=== PATIENT | female | born 1960 | race American Indian/Alaskan Native ===

== ENCOUNTER 2020-04-15 15:01 | Emergency (ER) | payer SELFPAY ==
[2020-04-15 15:27] VITALS: BP 138/84
--- NOTE | 2020-04-15 15:27 | Emergency Department Report ---
Blank Doc - Documentation Documentation: 59-year-old female that presents with blood in stool. Denies any abdominal pain or n/v. Stated has bright red blood in toilet while having a bowel movement. This initial assessment/diagnostic orders/clinical plan/treatment(s) is/are subject to change based on patients health status, clinical progression and re- assessment by fellow clinical providers in the ED. Further treatment and workup at subsequent clinical providers discretion. Patient/guardian urged not to elope from the ED as their condition may be serious if not clinically assessed and managed. Initial orders include: labs ua
[2020-04-15 15:55] LABS: Basophils # (Auto) 0.1 K/mm3 (0.0-0.1); Basophils % (Auto) 0.8 % (0.0-1.8); Eosinophils # (Auto) 0.1 K/mm3 (0.0-0.4); Eosinophils % (Auto) 1.9 % (0.0-4.3); Hematocrit 43.3 % (30.3-42.9); Hemoglobin 14.3 gm/dl (10.1-14.3); Lymphocytes # (Auto) 2.6 K/mm3 (1.2-5.4); Mean Corpuscular HGB Conc 33 % (30-34); Mean Corpuscular Volume 84 fl (79-97); Monocytes # (Auto) 0.5 K/mm3 (0.0-0.8); Monocytes % (Auto) 5.7 % (0.0-7.3); Platelet Count 258 K/mm3 (140-440); Red Blood Count 5.18 M/mm3 (3.65-5.03); Red Cell Distribution Width 14.1 % (13.2-15.2)
[2020-04-15 16:14] LABS: Alanine Aminotransferase 17 units/L (7-56); Albumin 4.2 g/dL (3.9-5); BUN/Creatinine Ratio 19; Blood Urea Nitrogen 17 mg/dL (7-17); Calcium 9.4 mg/dL (8.4-10.2); Hemolysis Index 6
--- NOTE | 2020-04-15 17:32 | Emergency Department Report ---
HPI - General Chief Complaint: Abdominal Pain Time Seen by Provider: 04/15/20 15:26 - HPI HPI: Room 43 The patient is a 59-year-old female present with a chief complaint of blood in her stool. The patient states 3 days ago she noticed blood in her stool and bright red blood on the tissue after wiping. Patient denies rectal pain at that time. Patient states she did not have another episode of hematochezia until yesterday when she noticed a small drop of blood in the bowl. Patient admits to nausea but denies vomiting. Patient admits to lower abdominal pain for the past 4 days. Patient denies history of fever. The patient states she is never had a colonoscopy ED Past Medical Hx - Past Medical History Previous Medical History?: No - Surgical History Past Surgical History?: No Additional Surgical History: Hysterectomy, myomectomy, bilateral tubal ligation - Family History Family history: no significant - Social History Smoking Status: Never Smoker Substance Use Type: None (Denies illicit drug use) - Medications Home Medications: Home Medications Medication Instructions Recorded Confirmed Last Taken Type Hydrocortisone [Anucort-HC SUPPOS] 25 mg RC BID #10 supp.rect 04/15/20 Unknown Rx metroNIDAZOLE [Flagyl] 500 mg PO Q12HR #14 tab 04/15/20 Unknown Rx ED Review of Systems ROS: Stated complaint: BLOOD IN STOOL/DISCHARGE Other details as noted in HPI Constitutional: denies: fever Eyes: denies: eye pain ENT: denies: throat pain Respiratory: no symptoms reported Cardiovascular: denies: chest pain Endocrine: no symptoms reported Gastrointestinal: abdominal pain, nausea, hematochezia. denies: vomiting Musculoskeletal: denies: back pain Neurological: denies: headache Physical Exam - Physical Exam Vital Signs: Vital Signs 04/15/20 15:26 Temperature 98.5 F Pulse Rate 84 Respiratory 16 Rate Blood Pressure 138/84 [Right] O2 Sat by Pulse 100 Oximetry Physical Exam: GENERAL: The patient is well-developed well-nourished female sitting in chair not appearing to be in acute distress. [] HEENT: Normocephalic. Atraumatic. Extraocular motions are intact. Patient has moist mucous membranes. NECK: Supple. Trachea midline CHEST/LUNGS: Clear to auscultation. There is no respiratory distress noted. HEART/CARDIOVASCULAR: Regular. There is no tachycardia. There is no gallop rub or murmur. ABDOMEN: Abdomen is soft, nontender. Patient has normal bowel sounds. There is no abdominal distention. SKIN: There is no rash. There is no edema. There is no diaphoresis. NEURO: The patient is awake, alert, and oriented. The patient is cooperative. The patient has normal speech MUSCULOSKELETAL: There is no evidence of acute injury. RECTAL: Heme positive maroon-colored stool PELVIC: Small amount of white/yellow discharge seen in the vault. ED Course Vital Signs 04/15/20 15:26 Temperature 98.5 F Pulse Rate 84 Respiratory 16 Rate Blood Pressure 138/84 [Right] O2 Sat by Pulse 100 Oximetry ED Medical Decision Making - Lab Data Result diagrams: 04/15/20 15:29 04/15/20 15:29 - Radiology Data Radiology results: report reviewed (CT abdomen pelvis), image reviewed (CT abdomen pelvis) Findings [facility] [address] [place] [id number] Cat Scan Report Signed Patient: GRACE SHIPLEY MR#: [id number] 0 : 1960 Acct:[id number] Age/Sex: 59 / F ADM Date: 04/15/20 Loc: ED Attending Dr: Ordering Physician: DIEGO NICOLE MD Date of Service: 04/15/20 Procedure(s): CT abdomen pelvis w con Accession Number(s): [id number] cc: DIEGO NICOLE MD CT ABDOMEN AND PELVIS WITH CONTRAST INDICATION / CLINICAL INFORMATION: Lower abdominal pain, hematochezia. TECHNIQUE: Axial CT images were obtained through the abdomen and pelvis after 100 cc Omni [address] scans at this location are performed using CT dose reduction for ALARA by means of automated exposure control. COMPARISON: None available. FINDINGS: LOWER CHEST: No significant abnormality. HEPATOBILIARY: No significant abnormality. PANCREA S/SPLEEN/ADRENALS: No significant abnormality. GENITOURINARY: No significant abnormality. GASTROINTESTINAL/MESENTERY: Diverticulosis coli without evidence of diverticulitis. Appendix demonstrates no significant abnormality. No bowel obstruction or inflammation. No free air or significant free fluid. RETROPERITONEUM: No significant adenopathy. REPRODUCTIVE ORGANS: No significant abnormality. VASCULAR: No significant abnormality. BODY WALL: No significant abnormality. SKELETAL SYSTEM: L2 vertebral body hemangioma. No acute fracture or aggressive appearing osseous lesion. IMPRESSION: 1. No acute abdominopelvic abnormality. 2. Diverticulosis coli without evidence of diverticulitis. 3. Additional findings as above. Signer Name: Cassy Dubose MD Signed: 04/15/2020 8:15 PM Workstation Name: [id number] Transcribed By: Dictated By: CASSY DUBOSE III Electronically Authenticated By: CASSY DUBOSE III Signed Date/Time: 04/15/202014 DD/ 08 TD/TT: - Differential Diagnosis Internal hemorrhoids, colonic mass, diverticulosis, Critical care attestation.: If time is entered above; I have spent that time in minutes in the direct care of this critically ill patient, excluding procedure time. ED Disposition Clinical Impression: Hematochezia, Trichomonas vaginalis (TV) infection, Bacterial vaginosis Disposition: TO HOME OR SELFCARE Is pt being admited?: No Does the pt Need Aspirin: No Condition: Stable Instructions: Abdominal Pain (ED), Bacterial Vaginosis (ED), Trichomoniasis, Gastrointestinal Bleeding, Bacterial Vaginosis Additional Instructions: Return to the emergency department should you develop worsening symptoms, inability to tolerate food or liquids, high fever or any other concerns Prescriptions: Hydrocortisone [Anucort-HC SUPPOS] 25 mg RC BID #10 supp.rect metroNIDAZOLE [Flagyl] 500 mg PO Q12HR #14 tab Referrals: [facility] [Provider Group] - 3-5 Days YANELIS CHIN MD [Staff Physician] - 3-5 Days (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 Please follow-up with him for further evaluation) Forms: STI Treatment and Prevention Time of Disposition: 21:20
--- NOTE | 2020-04-15 20:19 | Cat Scan Report ---
CT ABDOMEN AND PELVIS WITH CONTRAST INDICATION / CLINICAL INFORMATION: Lower abdominal pain, hematochezia. TECHNIQUE: Axial CT images were obtained through the abdomen and pelvis after 100 cc Omni [address] scans at this location are performed using CT dose reduction for ALARA by means of automated expos ure control. COMPARISON: None available. FINDINGS: LOWER CHEST: No significant abnormality. HEPATOBILIARY: No significant abnormality. PANCREAS/SPLEEN/ADRENALS: No significant abnormality. GENITOURINARY: No significant abnormality. GASTROINTESTINAL/MESENTERY: Diverticulosis coli without evidence of diverticulitis. Appendix demonstr ates no significant abnormality. No bowel obstruction or inflammation. No free air or significant cory e fluid. RETROPERITONEUM: No significant adenopathy. REPRODUCTIVE ORGANS: No significant abnormality. VASCULAR: No significant abnormality. BODY WALL: No significant abnormality. SKELETAL SYSTEM: L2 vertebral body hemangioma. No acute fracture or aggressive appearing osseous lesi on. IMPRESSION: 1. No acute abdominopelvic abnormality. 2. Diverticulosis coli without evidence of diverticulitis. 3. Additional findings as above. Signer Name: Александр Dubose MD Signed: 04/15/2020 8:15 PM Workstation Name: [id number]
[2020-04-15 21:23] LABS: Bacteria,Urine 1+ /HPF (Negative); Bilirubin,Urine NEG (Negative); Blood,Urine SM (Negative); Color,Urine Yellow (Yellow); Mucus,Urine FEW /HPF; Urobilinogen,Urine < 2.0 mg/dL (<2.0)
[2020-04-15 21:36] LABS: Protein,Urine >500 mg/dL (Negative)
== END 2020-04-15 21:33 | disposition home or self-care (01) ==
LOC: ED 15:01
DX: A59.01 Trichomonal vulvovaginitis (principal); N76.0 Acute vaginitis; K92.1 Melena; Z79.899 Other long term (current) drug therapy; Z90.710 Acquired absence of both cervix and uterus; Z98.890 Other specified postprocedural states; Z98.51 Tubal ligation status
CPT/HCPCS: 36415; 74177; 80053; 81001; 82271; 85025; 87210; 87591; 99284; Q9967